=== PATIENT | female | born 1985 ===

== ENCOUNTER 2024-03-08 07:00 | Inpatient (IN) | payer OTHER ==
[2024-03-08] MEDS: ELECTROLYTE-148 SOLN 1,000 ML IV SCH (08:00)
[2024-03-08 08:29] LABS: INR 0.85 (0.83-1.09); PROTHROMBIN TIME (PATIENT) 9.7 SEC (9.7-13.0)
[2024-03-08 08:31] LABS: ACTIVATED PTT 25.4 SECONDS (25.2-36.5)
[2024-03-08 08:33] LABS: BASO % 0.4 % (0-2.0); EOS % 0.3 % (0-4.5); HEMATOCRIT 34.4 % (32.4-45.2); HEMOGLOBIN 11.4 GM/dL (10.7-15.3); LYMPH % 29.2 % (8-40); MEAN CELL VOLUME 81.9 fl (80-96); MEAN PLT VOLUME 8.9 fl (7.5-11.1); MONO % 5.1 % (3.8-10.2); PLATELET COUNT 234 10^3/uL (134-434); RDW 16.8 % (11.6-15.6); WHITE BLOOD COUNT 7.4 K/mm3 (4.0-10.0)
[2024-03-08] MEDS: OXYTOCIN 30 UNITS in 0.9% NS 30 UNIT/500 ML INFUS.BAG IVPB SCH (09:00)
[2024-03-08] MEDS ORDERED: OXYTOCIN 30 UNITS in 0.9% NS 30 UNIT/500 ML INFUS.BAG IVPB ONE (09:01)
[2024-03-08 09:36] VITALS: BMI 40.6
[2024-03-08] MEDS ORDERED: FENTANYL CITRATE/PF 50 MCG/ML VIAL ONE (11:14)
[2024-03-08] MEDS ORDERED: BUPIVACAINE HCL/PF 0.25% (2.5MG/ML) 10 ML VIAL ONE (11:15)
[2024-03-08] MEDS ORDERED: FENTANYL/BUPIVACAINE/NS/PF - PCEA - 50 ML DISP.SYRIN EP ONE ×2 (11:17→16:20)
[2024-03-08] MEDS: FENTANYL/BUPIVACAINE/NS/PF - PCEA - 50 ML DISP.SYRIN EP SCH (11:30)
[2024-03-08] MEDS ORDERED: NALOXONE HCL 0.4 MG/ML VIAL IVPUSH PRN (12:46)
[2024-03-08 14:11] LABS: SYPHILIS W/ RPR CONF NON-REACTIVE (NONREACTIVE)
[2024-03-08] MEDS ORDERED: OXYTOCIN 20 UNITS in 0.9% NS 20 UNIT/1,000 ML INFUS.BAG IV ONE (17:53)
[2024-03-08] MEDS ORDERED: WITCH HAZEL 50% (TUCKS) 40 PAD/JAR PAD TP PRN (18:40)
[2024-03-08] MEDS ORDERED: BENZOCAINE 28 GM HEMORRHOIDAL OINTMENT TP PRN (18:40)
[2024-03-08] MEDS: OXYTOCIN 20 UNITS in 0.9% NS 20 UNIT/1,000 ML INFUS.BAG IV SCH (18:40)
[2024-03-08] MEDS ORDERED: METHYLERGONOVINE MALEATE 0.2 MG/1 ML AMP IM PRN (18:40)
[2024-03-08] MEDS ORDERED: BENZOCAINE 20% 57 GM BOTTLE TP PRN (18:40)
[2024-03-08] MEDS ORDERED: BISACODYL 10 MG SUPP.RECT RC PRN (18:40)
[2024-03-08 18:57] LABS: CORD BASE EXCESS -2.2 mmol/L (0-2); CORD PCO2 46.1 mmHg (30-78); CORD pH 7.334 (7.14-7.44)
[2024-03-08 18:59] LABS: CORD BASE EXCESS -6.4 mmol/L (0-2); CORD HCO3 20.4 mmHg (20-29); CORD PCO2 45.2 mmHg (30-78); CORD pH 7.273 (7.14-7.44)
[2024-03-08] MEDS ORDERED: oxyCODONE HCL 5 MG TABLET ONE (19:51)
[2024-03-08] MEDS: oxyCODONE HCL 5 MG TABLET PO PRN (19:53)
[2024-03-09] MEDS: IBUPROFEN 600 MG TABLET (FP) PO PRN (00:25)
[2024-03-09 07:39] LABS: BASO % 0.3 % (0-2.0); EOS % 0.2 % (0-4.5); HEMATOCRIT 31.8 % (32.4-45.2); HEMOGLOBIN 10.3 GM/dL (10.7-15.3); LYMPH % 19.9 % (8-40); MCH 26.6 pg (25.7-33.7); MCHC 32.3 g/dl (32.0-36.0); MEAN CELL VOLUME 82.4 fl (80-96); MEAN PLT VOLUME 8.7 fl (7.5-11.1); MONO % 3.8 % (3.8-10.2); NEUT % 75.8 % (42.8-82.8); PLATELET COUNT 189 10^3/uL (134-434); RBC 3.85 M/mm3 (3.60-5.2); RDW 16.7 % (11.6-15.6); WHITE BLOOD COUNT 11.8 K/mm3 (4.0-10.0)
[2024-03-09] MEDS: PRENATAL VITAMINS W/ FOLIC ACID TABLET (FP) PO SCH (10:14)
[2024-03-09] MEDS: ACETAMINOPHEN 325 MG TABLET (FP) PO PRN (17:01)
[2024-03-09] MEDS ORDERED: MISOPROSTOL 200 MCG TABLET ONE (17:50)
[2024-03-09] MEDS: SENNOSIDES/DOCUSATE COMBO (SENNA PLUS) TABLET (UD) PO PRN (21:14)
[2024-03-10 10:40] VITALS: BP 113/77; PULSE 91; RESP 16; TEMP 97.8
== END 2024-03-10 10:50 | disposition home or self-care (01) | DRG 560 ==
LOC: JLDR 07:00 → J3W 20:24
PROVIDERS: ADMIT Obstetrics & Gynecology; ATTEND Obstetrics & Gynecology
PROC: 10E0XZZ Delivery of Products of Conception, External Approach (ICD-10-PCS; principal; 2024-03-08)
DX: O80 Encounter for full-term uncomplicated delivery (principal); Z3A.39 39 weeks gestation of pregnancy; Z37.0 Single live birth
CPT/HCPCS: 36415; 36600; 59409; 82803; 85025; 85610; 85730; 86780; 86803; 86850; 86900; 86901